=== PATIENT | male | born 1985 | race American Indian/Alaskan Native ===

== ENCOUNTER 2021-05-15 15:21 | Emergency (ER) | payer SELFPAY | END 2021-05-15 16:40 | disposition left against medical advice (07) | LOC: ED 15:21 | DX: K46.9 Unspecified abdominal hernia without obstruction or gangrene (principal); Z53.21 Procedure and treatment not carried out due to patient leaving prior to being seen by health care provider ==

== ENCOUNTER 2021-05-16 03:59 | Emergency (ER) | payer SELFPAY ==
[2021-05-16] MEDS ORDERED: MORPHINE 4 MG/1 ML INJ IM ONE (04:26)
[2021-05-16] MEDS ORDERED: ONDANSETRON 4 MG/2 ML INJ IM ONE (04:26)
--- NOTE | 2021-05-16 04:31 | Emergency Department Report ---
ED General Adult HPI - General Chief complaint: Abdominal Pain Stated complaint: poss hernia Source: patient Mode of arrival: Wheelchair Limitations: No Limitations - History of Present Illness Initial comments: Patient is 35 years old male with history of multiple sclerosis. Patient brought to the emergency room via EMS from home stating that he admitted that he had hernia. Patient stated the symptoms started yesterday. Patient describes swelling under his scrotum. Patient denied any fever or chills. No nausea or vomiting. Severity scale (0 -10): 10 - Related Data Allergies Allergy/AdvReac Type Severity Reaction Status Date / Time No Known Allergies Allergy Verified 05/16/21 04:08 ED Review of Systems ROS: Stated complaint: poss hernia Other details as noted in HPI Comment: All other systems reviewed and negative Constitutional: denies: chills, fever Respiratory: denies: cough, shortness of breath, SOB with exertion Cardiovascular: denies: chest pain, palpitations Gastrointestinal: denies: abdominal pain, nausea Musculoskeletal: denies: back pain Skin: lesions ED Past Medical Hx - Past Medical History Hx Hypertension: No Hx CVA: No Hx Heart Attack/AMI: No Hx Congestive Heart Failure: No Hx Diabetes: No Hx Deep Vein Thrombosis: No Hx Pulmonary Embolism: No Hx GERD: No Hx Liver Disease: No Hx Renal Disease: No Hx Sickle Cell Disease: No Hx Arthritis: No Hx Headaches / Migraines: No Hx Seizures: No Hx Kidney Stones: No Hx Psychiatric Treatment: No Hx Asthma: No Hx COPD: No Hx Tuberculosis: No Hx Dementia: No Hx HIV: No Additional medical history: hiccups - Social History Smoking Status: Never Smoker Substance Use Type: Alcohol ED Physical Exam - General Limitations: No Limitations General appearance: alert, in no apparent distress - Head Head exam: Present: atraumatic, normocephalic, normal inspection - ENT ENT exam: Present: mucous membranes moist - Respiratory Respiratory exam: Present: normal lung sounds bilaterally - Cardiovascular Cardiovascular Exam: Present: regular rate, normal rhythm, normal heart sounds - GI/Abdominal GI/Abdominal exam: Present: soft. Absent: distended, tenderness, guarding, rebound - External exam: Present: other (3 time 3 cm swelling, warm to tender with no evidence of cellulitis. Not fluctuant.) - Extremities Exam Extremities exam: Present: normal inspection - Neurological Exam Neurological exam: Present: alert, oriented X3, CN II-XII intact - Psychiatric Psychiatric exam: Present: normal mood - Skin Skin exam: Present: warm, intact, normal color ED Course Vital Signs 05/16/21 04:00 Temperature 98.7 F Pulse Rate 74 Respiratory 17 Rate Blood Pressure 140/100 [Left] O2 Sat by Pulse 99 Oximetry ED Medical Decision Making - Medical Decision Making Patient is 35 years old male with history of multiple sclerosis. Patient brought to the emergency room via EMS from home stating that he admitted that he had hernia. Patient stated the symptoms started yesterday. Patient describes swelling under his scrotum. Patient denied any fever or chills. No nausea or vomiting. Patient has perineal swelling with tenderness but no evidence of cellulitis. This is not fluctuant yet. Patient given prescription for doxycycline and ciprofloxacin. Patient also advised to do sitz bath and to follow-up with his primary doctor in the next 2 to 3 days and to return to the ER if he develop any symptoms. Critical care attestation.: If time is entered above; I have spent that time in minutes in the direct care of this critically ill patient, excluding procedure time. ED Disposition Clinical Impression: Perineal abscess, superficial Disposition: HOME / SELF CARE / HOMELESS Is pt being admited?: No Condition: Stable Instructions: Skin Abscess Referrals: SEBASTIAN BRIONES MD [Staff Physician] - 3-5 Days Forms: Work/School Release Form(ED)
[2021-05-16 05:07] LABS: BUN/Creatinine Ratio 8; Blood Urea Nitrogen 6 mg/dL (9-20); Calcium 8.7 mg/dL (8.4-10.2); Hemolysis Index 26
[2021-05-16 05:12] LABS: Basophils % (Auto) 0.4 % (0.0-1.8); Eosinophils # (Auto) 0.2 K/mm3 (0.0-0.4); Eosinophils % (Auto) 2.1 % (0.0-4.3); Hematocrit 48.6 % (35.5-45.6); Hemoglobin 16.5 gm/dl (11.8-15.2); Lymphocytes # (Auto) 2.2 K/mm3 (1.2-5.4); Lymphocytes % (Auto) 21.6 % (13.4-35.0); Mean Corpuscular HGB Conc 34 % (32-34); Mean Corpuscular Volume 103 fl (84-94); Monocytes # (Auto) 0.8 K/mm3 (0.0-0.8); Monocytes % (Auto) 7.9 % (0.0-7.3); Platelet Count 180 K/mm3 (140-440); Red Blood Count 4.71 M/mm3 (3.65-5.03); Red Cell Distribution Width 13.1 % (13.2-15.2)
[2021-05-16] MEDS ORDERED: traMADol 50 MG TAB PO ONE (06:53)
[2021-05-16 07:13] VITALS: BP 137/93
== END 2021-05-16 07:00 | disposition home or self-care (01) ==
LOC: ED 03:59
DX: L02.215 Cutaneous abscess of perineum (principal); G35 Multiple sclerosis
CPT/HCPCS: 36415; 80048; 85025; 96372; 99283; J2270; J2405